=== PATIENT | male | born 1930 | race Asian ===

== ENCOUNTER → 2016-12-11 | Outpatient (CLI) | payer OTHER, MEDICAID | END | disposition home or self-care (01) | LOC: US 13:29 | PROC: B345ZZZ Ultrasonography of Bilateral Common Carotid Arteries (ICD-10-PCS; principal; 2016-12-11) | PROC: B348ZZZ Ultrasonography of Bilateral Internal Carotid Arteries (ICD-10-PCS; 2016-12-11) | DX: I65.29 Occlusion and stenosis of unspecified carotid artery (principal) ==